=== PATIENT | female | born 1950 | race Caucasian/White ===

== ENCOUNTER 2019-06-07 00:27 | Inpatient (IN) | payer MEDICARE, OTHER ==
[~2019-06-07] VITALS: Ht 167.6 cm; Wt 52.6 kg
[2019-06-07] MEDS ORDERED: OXYC5CAP18 PO (00:47)
[2019-06-07] MEDS ORDERED: TIZA4TAB5 PO (00:47)
[2019-06-07] MEDS ORDERED: NALO4SPR NS (00:47)
[2019-06-07] MEDS ORDERED: CEPH-569 PO (00:47)
[2019-06-07] MEDS ORDERED: LEVO100T10 PO (00:47)
[2019-06-07] MEDS ORDERED: TAPE250T PO (00:47)
[2019-06-07] MEDS ORDERED: IBUP-1955 PO (00:47)
[2019-06-07] MEDS ORDERED: ACET1TAB14 PO (00:47)
[2019-06-07] MEDS ORDERED: PROG100C8 PO (00:47)
--- NOTE | 2019-06-07 02:07 | NUR ---
MSE COMPLETED, MRSA-NARES ORDERED/ASENT/ADMIT ORDERS WRITTEN, BELONGINGS LIST DONE. SBAR REPORT TO VICTOR M POLO. PT RESTING,
[2019-06-07] MEDS ORDERED: MAGNESIUM HYDROXIDE 30 ML LIQUID UDC PO PRN (02:45)
[2019-06-07] MEDS ORDERED: MAG HYDROX/AL HYDROX/SIMETH 30 ML LIQUID UDC PO PRN (02:45)
[2019-06-07] MEDS ORDERED: ACETAMINOPHEN 325 MG TABLET PO PRN (02:45)
[2019-06-07] MEDS ORDERED: LORAZEPAM 0.5 MG TABLET PO PRN (02:45)
[2019-06-07] MEDS ORDERED: ZOLPIDEM 5 MG TABLET PO PRN (02:45)
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
[2019-06-07 04:15] VITALS: BP 135/69
[2019-06-07 07:30] VITALS: BP 124/72
[2019-06-07] MEDS ORDERED: OXYCODONE HCL 5 MG TABLET PO PRN (11:30)
[2019-06-07] MEDS ORDERED: IBUPROFEN 600 MG TABLET PO SCH (11:30)
[2019-06-07] MEDS ORDERED: IBUPROFEN 600 MG TABLET PO PRN (11:45)
[2019-06-07] MEDS: ESCITALOPRAM OXALATE 10 MG TABLET PO SCH (14:51)
[2019-06-07] MEDS: TIZANIDINE HCL 4 MG TABLET PO SCH ×2 (14:51→17:42)
[2019-06-07 15:13] LABS: BASOPHILS # (AUTO) 0.1 K/uL (0.0-8.0); BASOPHILS % (AUTO) 0.8 % (0.0-2.0); EOSINOPHILS # (AUTO) 0.2 K/uL (0.0-0.7); HEMATOCRIT 34.5 % (31.2-41.9); HEMOGLOBIN 11.4 g/dL (10.9-14.3); LYMPHOCYTES # (AUTO) 2.3 K/uL (20.0-40.0); LYMPHOCYTES % (AUTO) 27.5 % (20.5-51.5); MEAN CORPUSCULAR HEMOGLOBIN 28.2 uug (24.7-32.8); MEAN CORPUSCULAR HGB CONC 33 g/dL (32.3-35.6); MEAN CORPUSCULAR VOLUME 85.5 fL (75.5-95.3); MONOCYTES # (AUTO) 0.7 K/uL (2.0-10.0); MONOCYTES % (AUTO) 8.5 % (0.0-11.0); NEUTROPHILS % (AUTO) 61.2 % (38.5-71.5); PLATELET COUNT (AUTO) 445 K/uL (179-408); RED BLOOD CELL COUNT(AUTO) 4.04 MIL/uL (3.63-4.92); WHITE BLOOD COUNT (AUTO) 8.2 K/uL (3.8-11.8)
[2019-06-07 15:20] LABS: CREATININE 0.6 mg/dL (0.6-1.3); POTASSIUM 3.9 mmol/L (3.5-5.1)
[2019-06-07 15:27] LABS: BILIRUBIN,TOTAL 0.2 mg/dL (0.2-1.0); MAGNESIUM 2.2 mg/dL (1.8-2.4); PHOSPHOROUS 2.3 mg/dL (2.5-4.9); TOTAL PROTEIN, SERUM 6.8 g/dL (6.4-8.2)
[2019-06-07 16:00] VITALS: BP 118/62
[2019-06-07] MEDS ORDERED: CEphaleXIN 250 MG CAPSULE PO SCH (17:00)
[2019-06-07] MEDS ORDERED: OLANZAPINE 2.5 MG TABLET PO SCH (17:00)
[2019-06-07] MEDS: CEphaleXIN 500 MG CAPSULE PO SCH (17:42)
--- NOTE | 2019-06-07 19:20 | NUR ---
PT PLEASANT WHEN APPROACH. PT NO DELUSIONAL THOUGHTS. PT IN NO ACUTE DISTRESS. SAFETY AND COMFORT PROVIDED. WILL CONTINUE TO MONITOR.
[2019-06-07 20:16] VITALS: BP 124/72
[2019-06-07] MEDS: QUETIAPINE FUMARATE 25 MG TABLET PO SCH (20:18)
[2019-06-08] MEDS: LEVOTHYROXINE SODIUM 100 MCG TABLET PO SCH (06:06)
--- NOTE | 2019-06-08 06:39 | NUR ---
PT SLEPT 8 HOURS. PT SHOWS NO ACUTE DISTRESS. PT COMPLIANT WITH CARE. PRESCRIBED MEDICATION GIVEN AND PT TOLERATED IT WELL. SAFETY AND COMFORT PROVIDED. WILL ENDORSE ACCORDINGLY TO INCOMING NURSE FOR CONTINUITY OF CARE.
[2019-06-08 07:30] VITALS: BP 122/66
[2019-06-08] MEDS: TIZANIDINE HCL 4 MG TABLET PO SCH ×3 (08:36→16:37)
[2019-06-08] MEDS: CEphaleXIN 500 MG CAPSULE PO SCH ×2 (08:36→16:37)
[2019-06-08] MEDS: ESCITALOPRAM OXALATE 10 MG TABLET PO SCH (08:36)
--- NOTE | 2019-06-08 12:57 | NUR ---
Preliminary Discharge Plan/Discharge needs: Pt currently lives with her son, Jmeal Tapia at [address] [place] [address] [address], [facility] [address]; [phone]. Per pt, she is ambulatory with a walker. Pt. would like to return to her home. broke worker will plan to discuss placement options with pt family, and MD for discharge planning. broke worker will continue to work on a safe and proper discharge plan for pt.
[2019-06-08 16:00] VITALS: BP 124/69
[2019-06-08 19:45] VITALS: BP 129/71
[2019-06-08] MEDS: QUETIAPINE FUMARATE 25 MG TABLET PO SCH (20:21)
[2019-06-09] MEDS: LEVOTHYROXINE SODIUM 100 MCG TABLET PO SCH (06:51)
[2019-06-09 07:30] VITALS: BP 127/64
[2019-06-09] MEDS: TIZANIDINE HCL 4 MG TABLET PO SCH ×3 (09:03→17:28)
[2019-06-09] MEDS: CEphaleXIN 500 MG CAPSULE PO SCH ×2 (09:03→17:28)
[2019-06-09] MEDS: ESCITALOPRAM OXALATE 10 MG TABLET PO SCH (09:03)
--- NOTE | 2019-06-09 11:30 | NUR ---
Gps/Care Mgr Patients' mother (Aida Maldonado) called, want to know information on patients' progress. Asked patient if ok to give information to her mother, stated" it is ok" Aida Maldonado .
[2019-06-09 16:07] VITALS: BP 108/60
--- NOTE | 2019-06-09 16:21 | NUR ---
Gps/[employer] Media Program Director- Remains in bed, not interactive. Monitored needs, reviewed safety. Adequate fluid intake, eating better, no initiation , no motivation to initiate simple tasks to assist self, needed prompting.
[2019-06-09 19:44] VITALS: BP 115/65
[2019-06-09] MEDS: QUETIAPINE FUMARATE 25 MG TABLET PO SCH (20:12)
[2019-06-10] MEDS: LEVOTHYROXINE SODIUM 100 MCG TABLET PO SCH (06:31)
[2019-06-10 07:30] VITALS: BP 130/60
[2019-06-10] MEDS: TIZANIDINE HCL 4 MG TABLET PO SCH ×3 (08:24→17:03)
[2019-06-10] MEDS: ESCITALOPRAM OXALATE 10 MG TABLET PO SCH (08:24)
[2019-06-10] MEDS: CEphaleXIN 500 MG CAPSULE PO SCH ×2 (08:29→17:03)
[2019-06-10 15:08] VITALS: BP 114/59
--- NOTE | 2019-06-10 19:32 | NUR ---
Patient pleasant upon approach, calm, engages in appropriate conversation. No complaints at the moment. Bed in low position, locked, side rails up x 2 for safety. Noise and lights subdued. Will continue to monitor.
[2019-06-10] MEDS: QUETIAPINE FUMARATE 25 MG TABLET PO SCH (20:03)
[2019-06-10 20:04] VITALS: BP 110/62
--- NOTE | 2019-06-11 05:58 | NUR ---
Patient slept well throughout the night. No complaints were made. Has been calm and compliant. Prescribed medications were taken. Attended all needs. Ensured safety and comfort.
[2019-06-11] MEDS: LEVOTHYROXINE SODIUM 100 MCG TABLET PO SCH (06:08)
[2019-06-11 07:30] VITALS: BP 124/64
[2019-06-11] MEDS: CEphaleXIN 500 MG CAPSULE PO SCH ×2 (08:37→17:49)
[2019-06-11] MEDS: TIZANIDINE HCL 4 MG TABLET PO SCH ×3 (08:37→17:49)
[2019-06-11] MEDS: ESCITALOPRAM OXALATE 10 MG TABLET PO SCH (08:37)
[2019-06-11 15:12] VITALS: BP 132/84
[2019-06-11 20:00] VITALS: BP 121/75
[2019-06-11] MEDS ORDERED: QUETIAPINE FUMARATE 25 MG TABLET PO SCH (21:00)
--- NOTE | 2019-06-11 22:00 | NUR ---
received to care, lying in bed, isolative, but pleasant upon approach. suspicious and guarded. compliant with medications, with minimal encouragement. as of 2199, she appears to be asleep. no distress noted. will continue to monitor closely.
[2019-06-12] MEDS: LEVOTHYROXINE SODIUM 100 MCG TABLET PO SCH (06:04)
--- NOTE | 2019-06-12 06:52 | NUR ---
slept 7.5 hours total. assisted with shower, and went back to sleep. no distress noted.
[2019-06-12 07:30] VITALS: BP 113/71
[2019-06-12] MEDS: CEphaleXIN 500 MG CAPSULE PO SCH (08:11)
[2019-06-12] MEDS: ESCITALOPRAM OXALATE 10 MG TABLET PO SCH (08:12)
[2019-06-12] MEDS: TIZANIDINE HCL 4 MG TABLET PO SCH ×3 (08:12→16:08)
[2019-06-12 16:01] VITALS: BP 95/58
--- NOTE | 2019-06-12 18:10 | NUR ---
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 BOSWELL, WILL CONTINUE MONITOR
[2019-06-12 20:01] VITALS: BP 117/72
[2019-06-12] MEDS: QUETIAPINE FUMARATE 25 MG TABLET PO SCH (20:15)
--- NOTE | 2019-06-13 05:28 | NUR ---
Patient slept intermittently throughout the night. No complaints were made. Has been calm and compliant. Prescribed medications were taken. Attended all needs. Ensured safety and comfort.
[2019-06-13] MEDS: LEVOTHYROXINE SODIUM 100 MCG TABLET PO SCH (06:19)
[2019-06-13] MEDS: ESCITALOPRAM OXALATE 10 MG TABLET PO SCH (08:02)
[2019-06-13] MEDS: TIZANIDINE HCL 4 MG TABLET PO SCH ×3 (08:02→16:08)
[2019-06-13 08:03] VITALS: BP 126/66
--- NOTE | 2019-06-13 17:20 | NUR ---
RECEIVED PATIENT AOX3 PATIENT COMPLIANT WITH MEDICATION, DENIES SI AND HI, IN NO DISTRESS, DENIES ANY PAIN GOOD APPETITE WILL CONTINUE MONITOR
[2019-06-13] MEDS: QUETIAPINE FUMARATE 25 MG TABLET PO SCH (20:27)
[2019-06-13 20:34] VITALS: BP 120/60
[2019-06-14] MEDS: LEVOTHYROXINE SODIUM 100 MCG TABLET PO SCH (06:24)
[2019-06-14 07:30] VITALS: BP 128/81
[2019-06-14] MEDS: ESCITALOPRAM OXALATE 10 MG TABLET PO SCH (08:32)
[2019-06-14] MEDS: TIZANIDINE HCL 4 MG TABLET PO SCH ×3 (08:34→17:00)
[2019-06-14] MEDS: VENLAFAXINE XR 37.5 MG CAP.SR.24H PO SCH (13:27)
[2019-06-14 16:00] VITALS: BP 116/68
[2019-06-14 19:30] VITALS: BP 125/65
[2019-06-14] MEDS: QUETIAPINE FUMARATE 25 MG TABLET PO SCH (20:14)
[2019-06-15] MEDS: LEVOTHYROXINE SODIUM 100 MCG TABLET PO SCH (06:51)
[2019-06-15 07:30] VITALS: BP 133/62
[2019-06-15] MEDS: TIZANIDINE HCL 4 MG TABLET PO SCH ×3 (08:31→18:07)
[2019-06-15] MEDS: VENLAFAXINE XR 37.5 MG CAP.SR.24H PO SCH (08:31)
[2019-06-15 15:50] VITALS: BP 121/60
[2019-06-15 20:15] VITALS: BP 103/69
[2019-06-15] MEDS: QUETIAPINE FUMARATE 25 MG TABLET PO SCH (20:29)
[2019-06-15 20:45] VITALS: BP 107/60
--- NOTE | 2019-06-16 05:52 | NUR ---
GPS: Remain calm and cooperative with meds and care. Patient slept intermittently throughout the night. slept 5 hrs through the night. showered this morning. Attended all needs. Ensured safety and comfort.
[2019-06-16] MEDS: LEVOTHYROXINE SODIUM 100 MCG TABLET PO SCH (06:11)
[2019-06-16 08:00] VITALS: BP 134/69
[2019-06-16] MEDS: VENLAFAXINE XR 37.5 MG CAP.SR.24H PO SCH (08:22)
[2019-06-16] MEDS: TIZANIDINE HCL 4 MG TABLET PO SCH ×3 (08:22→16:54)
[2019-06-16 16:00] VITALS: BP 119/81
[2019-06-16] MEDS: QUETIAPINE FUMARATE 25 MG TABLET PO SCH (20:12)
[2019-06-16 20:29] VITALS: BP 105/48
--- NOTE | 2019-06-16 20:37 | NUR ---
RECEIVED PATIENT IN BED.MOOD IS LOW,ISOLATIVE AND SEEMS GUARDED. SHE HOWEVER DENIES SI OR DELUSIONS UPON INTERACTIONS. COOPERATIVE WITH HER MEDS AND CARE. WILL CONTINUE TO MONITOR.
--- NOTE | 2019-06-17 06:47 | NUR ---
SLEPT WELL DURING THE NIGHT FOR APPROX.07;30HRS.ASSISTED TO KEEP HER PERSONAL HYGIENE.
[2019-06-17] MEDS: LEVOTHYROXINE SODIUM 100 MCG TABLET PO SCH (07:07)
[2019-06-17 07:30] VITALS: BP 127/59
[2019-06-17] MEDS: TIZANIDINE HCL 4 MG TABLET PO SCH ×3 (08:56→16:44)
[2019-06-17] MEDS: VENLAFAXINE XR 75 MG CAP.SR.24H PO SCH (08:56)
[2019-06-17] MEDS ORDERED: VENLAFAXINE XR 37.5 MG CAP.SR.24H PO SCH (09:00)
[2019-06-17 16:00] VITALS: BP 131/68
[2019-06-17 20:00] VITALS: BP 150/60
[2019-06-17] MEDS: QUETIAPINE FUMARATE 25 MG TABLET PO SCH (21:08)
--- NOTE | 2019-06-17 22:35 | NUR ---
RECEIVED PATIENT IN BED.CALM BUT REMAINS ISOLATIVE AND GUARDED.COMPLIANT WITH MEDS AND CARE.DENIES AH/SI.WILL CONTINUE TO MONITOR.
[2019-06-18] MEDS: LEVOTHYROXINE SODIUM 100 MCG TABLET PO SCH (06:36)
--- NOTE | 2019-06-18 06:42 | NUR ---
SLEPT FOR APPROX.08;00HRS
[2019-06-18 07:30] VITALS: BP 135/60
[2019-06-18] MEDS: TIZANIDINE HCL 4 MG TABLET PO SCH ×3 (08:03→16:27)
[2019-06-18] MEDS: VENLAFAXINE XR 75 MG CAP.SR.24H PO SCH (08:03)
[2019-06-18 15:16] VITALS: BP 148/90
[2019-06-18] MEDS: QUETIAPINE FUMARATE 100 MG TABLET PO SCH (20:09)
[2019-06-18 20:59] VITALS: BP 132/90
[2019-06-18] MEDS ORDERED: QUETIAPINE FUMARATE 25 MG TABLET PO SCH (21:00)
--- NOTE | 2019-06-18 22:00 | NUR ---
received to care, lying in bed, isolative, but pleasant upon approach. suspicious and guarded. compliant with medications, snacks, and staff direction. as of 2200, she appears to be asleep. no distress noted. will continue to monitor closely.
--- NOTE | 2019-06-19 06:00 | NUR ---
slept 8 hours total. continues to sleep. no distress noted.
[2019-06-19] MEDS: LEVOTHYROXINE SODIUM 100 MCG TABLET PO SCH (06:34)
[2019-06-19 07:30] VITALS: BP 121/68
[2019-06-19] MEDS: VENLAFAXINE XR 75 MG CAP.SR.24H PO SCH (08:14)
[2019-06-19] MEDS: TIZANIDINE HCL 4 MG TABLET PO SCH ×3 (08:14→16:21)
--- NOTE | 2019-06-19 11:50 | NUR ---
FIREARMS REPORT: Manager Analytical completed and submitted a [employer] firearms report for [address] [employer] certification. A copy of report has been placed in patient chart.
[2019-06-19 15:23] VITALS: BP 111/66
[2019-06-19 19:43] VITALS: BP 117/66
[2019-06-19] MEDS: QUETIAPINE FUMARATE 100 MG TABLET PO SCH (20:39)
--- NOTE | 2019-06-19 22:00 | NUR ---
received to care, lying in bed, isolative, but pleasant upon approach. suspicious and guarded. compliant with medications, and staff direction. as of 2199, she appears to be asleep. no distress noted. will continue to monitor closely.
[2019-06-20] MEDS: LEVOTHYROXINE SODIUM 100 MCG TABLET PO SCH (06:48)
[2019-06-20 07:30] VITALS: BP 114/58
[2019-06-20] MEDS: TIZANIDINE HCL 4 MG TABLET PO SCH (09:05)
[2019-06-20] MEDS: VENLAFAXINE XR 75 MG CAP.SR.24H PO SCH (09:05)
--- NOTE | 2019-06-20 09:42 | NUR ---
Discharge Note: Patient will be discharged to back to [facility] [[address] [facility], [place] [address]; ]. Please arrange ambulance transportation for this patient by 11:00am. Isabella, admissions bowling pin setters installer, states facility is ready to accept the patient today. Patient is AxOx1-2, denies suicidal ideation, is able to plan for self-care, and is agreeable with discharge plan. workers' compensation claims examiner has attempted to contact next of kin multiple times � patient�s son � Jemal Tapia [[phone]], to inform of patient�s discharge plan. However, patient�s son has not returned call and Bank Analyst is unable to leave voicemail due to box being full. Dr. Weeks (night stocker) and Dr. Bales (psychiatrist) will follow patient at the facility. Patient has also been provided with mental health resources including [facility] Crisis Line [ ], Desiree Gunter [ ], and the National Suicide Prevention Lifeline [ ].
--- NOTE | 2019-06-20 11:30 | NUR ---
100 Called [facility], [facility] - spoke with MELANI Powers who will be admitting the patient regardiding patient will be discharged today to their facility. The RN informed medications to continue upon hospital discharged. 1130 Patient discharged to above facility mentioned above . Patient picked up by ambulance alert and ox2, denies SI/HI. No delusion. No a/v hallucination noted.
== END 2019-06-20 11:30 | DRG 885 ==
LOC: ER 00:37 → GPS 00:52
PROVIDERS: ADMIT Psychiatry & Neurology Psychiatry; ATTEND Nurse Practitioner Acute Care
DX: F29 Unspecified psychosis not due to a substance or known physiological condition (principal); F03.91 Unspecified dementia, unspecified severity, with behavioral disturbance; E03.9 Hypothyroidism, unspecified; E88.09 Other disorders of plasma-protein metabolism, not elsewhere classified; E83.39 Other disorders of phosphorus metabolism; Z79.899 Other long term (current) drug therapy; F32.9 Major depressive disorder, single episode, unspecified; G89.29 Other chronic pain
CPT/HCPCS: 36415; 83735; 84100; 85025; 93005; A4663